=== PATIENT | male | born 1975 | race Caucasian/White ===

== ENCOUNTER 2016-10-14 05:37 | Emergency (ER) | payer SELFPAY ==
[~2016-10-14] VITALS: Ht 182.9 cm; Wt 83.9 kg
[~2016-10-14 05:37] MED LIST: ALBUTEROL17 GM INH; AMOXICILLIN250 MG PO; AMOXICILLIN500 M1 PO; AMOXIL500 MG PO; AMOXIL875 MG PO; AUGMENTIN PO; BACTRIM DS TABL1 TA1 PO; BENADRYL25 MG PO; CIPRO PO; DENTAL BALLS; DOXYCYCLINE HY100 M1 PO; KEFLEX PO; KEFLEX500 M1 PO; MOTRIN600 M2 PO; NAPROSYN375 MG PO; NAPROSYN500 MG PO; NO MEDICATIONS; NORCO1 TAB 10/3 PO; PREDNISONE PO; PREVACID PO; PROZAC PO; TYLENOL #3 PO; ULTRAM PO; VOLTAREN75 MG PO
== END 2016-10-14 06:11 | disposition home or self-care (01) ==
LOC: SED 05:37
DX: L25.5 Unspecified contact dermatitis due to plants, except food (principal); K21.9 Gastro-esophageal reflux disease without esophagitis; F17.200 Nicotine dependence, unspecified, uncomplicated
CPT/HCPCS: 96372; 99283; J1040

== ENCOUNTER 2016-12-01 17:14 | Emergency (ER) | payer SELFPAY ==
[~2016-12-01] VITALS: Ht 182.9 cm; Wt 83.0 kg
== END 2016-12-01 18:55 | disposition home or self-care (01) ==
LOC: SED 17:14
DX: D17.24 Benign lipomatous neoplasm of skin and subcutaneous tissue of left leg (principal); R06.2 Wheezing; J44.9 Chronic obstructive pulmonary disease, unspecified; F17.210 Nicotine dependence, cigarettes, uncomplicated
CPT/HCPCS: 99283